=== PATIENT | male | born 1990 | race Caucasian/White ===

== ENCOUNTER 2020-11-02 12:56 | Emergency (ER) | payer MEDICAID ==
[~2020-11-02] VITALS: Ht 175.3 cm; Wt 63.6 kg
[2020-11-02] MEDS ORDERED: LORazepam 1 MG TABLET PO ONE (14:00)
[2020-11-02] MEDS ORDERED: DiphenhydrAMINE HCL 25 MG CAPSULE PO ONE (14:00)
[2020-11-02 15:16] VITALS: BP 108/69
== END 2020-11-02 15:27 | disposition home or self-care (01) ==
LOC: EMS 13:02
DX: F15.10 Other stimulant abuse, uncomplicated (principal); F19.10 Other psychoactive substance abuse, uncomplicated; F11.90 Opioid use, unspecified, uncomplicated
CPT/HCPCS: 99283